=== PATIENT | female | born 1960 | race Caucasian/White ===

== ENCOUNTER 2021-03-26 15:16 | Inpatient (IN) | payer SELFPAY ==
[~2021-03-26 15:16] MED LIST: Iopamidol-370 76% 500 ML 1 ML ONE
[2021-03-26 16:28] LABS: #Basophils 0.1 thou/uL (0.0-0.2); #Eosinphils 0.5 thou/uL (0.0-0.7); #Lymphocytes 2.4 thou/uL (1.20-3.40); #Monocytes 0.7 thou/uL (0.11-0.59); #Neutrophils 10.8 thou/uL (1.40-6.50); %Basophils 0.4 % (0.0-1.0); %Eosinophils 3.5 % (0.0-10.0); %Lymphocytes 16.6 % (21.0-51.0); %Monocytes 4.7 % (0.0-10.0); %Neutrophils 74.8 % (42.0-75.0); Hemoglobin 13.8 g/dL (12.0-16.0); Mean Corpuscular HGB CONC 34.6 g/dL (32.0-36.0); Mean Corpuscular Hemoglobin 30.7 pg (27.0-31.0); Mean Corpuscular Volume 88.8 fL (78.0-98.0); Mean Platelet Volume 7.1 fL (7.4-10.4); Platelet Count 295 thou/uL (130-400); RBC Distribution Width 12.5 % (11.5-14.5); Red Blood Cell (RBC) Count 4.48 mill/uL (4.20-5.40); White Blood Cell (WBC) Count 14.4 thou/uL (4.8-10.8)
[2021-03-26 16:45] LABS: ALT (SGPT) 31 U/L (8-55); AST (SGOT) 58 U/L (5-34); Albumin 4.4 g/dL (3.5-5.0); Alkaline Phosphatase 60 U/L (40-110); Anion Gap 13 mmol/L (10-20); BUN (Urea Nitrogen) 13 mg/dL (9.8-20.1); Bilirubin, Total 0.5 mg/dL (0.2-1.2); Calc. Creatinine Clearance 0 mL/min (70-130); Calcium 9.2 mg/dL (7.8-10.44); Carbon Dioxide 22 mmol/L (22-29); Chloride 106 mmol/L (98-107); Glucose 96 mg/dL (70-105); Protein, Total 7.4 g/dL (6.0-8.3); Sodium 137 mmol/L (136-145)
[2021-03-26] MEDS ORDERED: Aspirin 325 MG TAB ONE (17:17)
[2021-03-26] MEDS ORDERED: Ondansetron PF 4 MG/2 ML Vial ONE ×2 (17:21→20:12)
[2021-03-26] MEDS ORDERED: Morphine 4 MG/ML VIAL ONE (17:21)
[2021-03-26] MEDS ORDERED: Dextrose 5% in Water 1,000 ML IV PRN ×2 (20:32→23:22)
[2021-03-26] MEDS ORDERED: Nitroglycerin 0.4 MG TAB (25 Tab Bottle) SL PRN ×2 (20:32→23:23)
[2021-03-26] MEDS ORDERED: Calcium Carbonate 500 MG ChewTAB PO PRN ×2 (20:32→23:23)
[2021-03-26] MEDS ORDERED: Ondansetron ODT 4 MG TAB PO PRN (20:32)
[2021-03-26] MEDS ORDERED: hydrALAZINE 20 MG/ML VIAL SLOW IVP PRN ×2 (20:32→23:23)
[2021-03-26] MEDS ORDERED: HumaLOG 300 UNITS/3 ML VIAL SC PRN ×4 (20:32→23:23)
[2021-03-26] MEDS ORDERED: Acetaminophen 325 MG TAB PO PRN ×2 (20:32→23:23)
[2021-03-26] MEDS ORDERED: Dextrose 50% Abboject 50 ML SYRINGE SLOW IVP PRN ×2 (20:32→23:22)
[2021-03-26 20:52] LABS: Troponin I Less than 0.010 ng/mL (< 0.028)
[2021-03-26] MEDS ORDERED: Morphine 4 MG/ML VIAL SLOW IVP PRN (20:56)
[2021-03-26] MEDS ORDERED: Lactated Ringer's 1,000 ML IV SCH (21:30)
[2021-03-26 22:42] VITALS: BMI 34.7
[2021-03-26] MEDS ORDERED: Rosuvastatin 20 MG TAB PO SCH ×2 (22:45→23:30)
[2021-03-26] MEDS ORDERED: Lisinopril 20 MG TAB PO SCH (22:45)
[2021-03-26] MEDS ORDERED: Zolpidem Tartrate 5 MG TAB PO SCH (23:30)
[2021-03-26] MEDS: Lactated Ringer's 1,000 ML IV SCH (23:43)
[2021-03-26] MEDS: Morphine 4 MG/ML VIAL SLOW IVP PRN (23:44)
[2021-03-27] MEDS ORDERED: Dextrose 5% in Water 1,000 ML IV PRN (00:08)
[2021-03-27] MEDS ORDERED: Dextrose 50% Abboject 50 ML SYRINGE SLOW IVP PRN (00:08)
[2021-03-27 01:44] LABS: Troponin I Less than 0.010 ng/mL (< 0.028)
[2021-03-27] MEDS: Lactated Ringer's 1,000 ML IV SCH ×4 (03:37→16:46)
[2021-03-27 05:06] LABS: Hemoglobin A1c 6.1 % (4.0-6.0)
[2021-03-27 05:10] LABS: #Lymphocytes 0.5 thou/uL (1.20-3.40); #Monocytes 0.6 thou/uL (0.11-0.59); #Neutrophils 15.5 thou/uL (1.40-6.50); %Basophils 0.2 % (0.0-1.0); %Eosinophils 0.2 % (0.0-10.0); %Lymphocytes 3.2 % (21.0-51.0); %Monocytes 3.6 % (0.0-10.0); %Neutrophils 92.9 % (42.0-75.0); Hemoglobin 12.3 g/dL (12.0-16.0); Mean Corpuscular HGB CONC 34.3 g/dL (32.0-36.0); Mean Corpuscular Hemoglobin 30.8 pg (27.0-31.0); Mean Platelet Volume 7.3 fL (7.4-10.4); Platelet Count 259 thou/uL (130-400); RBC Distribution Width 12.6 % (11.5-14.5); Red Blood Cell (RBC) Count 3.99 mill/uL (4.20-5.40); White Blood Cell (WBC) Count 16.7 thou/uL (4.8-10.8)
[2021-03-27 05:36] LABS: ALT (SGPT) 297 U/L (8-55); AST (SGOT) 415 U/L (5-34); Albumin 3.6 g/dL (3.5-5.0); Alkaline Phosphatase 70 U/L (40-110); Anion Gap 12 mmol/L (10-20); BUN (Urea Nitrogen) 11 mg/dL (9.8-20.1); Bilirubin, Total 2.2 mg/dL (0.2-1.2); Calc. Creatinine Clearance 120 mL/min (70-130); Calcium 8.3 mg/dL (7.8-10.44); Carbon Dioxide 22 mmol/L (22-29); Cardiac Risk 2.1 (Less than 4.5); Chloride 105 mmol/L (98-107); Cholesterol 73 mg/dl (< 200 Desired); Globulin 2.5 g/dL (2.4-3.5); Glucose 151 mg/dL (70-105); HDL Cholesterol 34 mg/dL (>60 Neg Risk); LDL Cholesterol, Calculated 27 mg/dL; Potassium 3.5 mmol/L (3.5-5.1); Protein, Total 6.1 g/dL (6.0-8.3); Sodium 135 mmol/L (136-145); Triglycerides 58 mg/dL (Less than 150)
[2021-03-27] MEDS: Aspirin Chewable 81 MG TAB PO SCH (07:28)
[2021-03-27] MEDS ORDERED: Aspirin Chewable 81 MG TAB PO SCH (09:00)
[2021-03-27] MEDS ORDERED: Lisinopril 20 MG TAB PO SCH ×2 (09:00)
[2021-03-27] MEDS ORDERED: Iopamidol-370 76% 500 ML 1 ML ONE (10:47)
[2021-03-27] MEDS: Morphine 4 MG/ML VIAL SLOW IVP PRN ×3 (12:37→20:46)
[2021-03-27] MEDS: Ondansetron ODT 4 MG TAB PO PRN ×2 (12:37→21:21)
[2021-03-27] MEDS ORDERED: Lactated Ringer's 1,000 ML IV SCH ×2 (15:47→16:14)
[2021-03-27] MEDS ORDERED: Piperacillin/Tazobactam 3.375 GM in Sodium Chloride 0.9% 100 ML IVPB SCH ×3 (16:00→18:00)
[2021-03-27 19:54] LABS: #Lymphocytes 0.4 thou/uL (1.20-3.40); #Monocytes 0.6 thou/uL (0.11-0.59); #Neutrophils 9.5 thou/uL (1.40-6.50); %Basophils 0.3 % (0.0-1.0); %Eosinophils 0.4 % (0.0-10.0); %Lymphocytes 3.8 % (21.0-51.0); %Monocytes 5.7 % (0.0-10.0); %Neutrophils 89.8 % (42.0-75.0); Hemoglobin 12.8 g/dL (12.0-16.0); Mean Corpuscular HGB CONC 33.7 g/dL (32.0-36.0); Mean Corpuscular Hemoglobin 30.7 pg (27.0-31.0); Mean Platelet Volume 7.2 fL (7.4-10.4); Platelet Count 208 thou/uL (130-400); RBC Distribution Width 12.8 % (11.5-14.5); Red Blood Cell (RBC) Count 4.17 mill/uL (4.20-5.40); White Blood Cell (WBC) Count 10.5 thou/uL (4.8-10.8)
[2021-03-27 20:14] LABS: ALT (SGPT) 270 U/L (8-55); AST (SGOT) 244 U/L (5-34); Albumin 3.8 g/dL (3.5-5.0); Alkaline Phosphatase 95 U/L (40-110); Anion Gap 8 mmol/L (10-20); BUN (Urea Nitrogen) 7 mg/dL (9.8-20.1); Bilirubin, Total 3.5 mg/dL (0.2-1.2); Calc. Creatinine Clearance 111 mL/min (70-130); Calcium 8.9 mg/dL (7.8-10.44); Carbon Dioxide 28 mmol/L (22-29); Chloride 104 mmol/L (98-107); Globulin 2.7 g/dL (2.4-3.5); Glucose 115 mg/dL (70-105); Potassium 4.2 mmol/L (3.5-5.1); Protein, Total 6.5 g/dL (6.0-8.3); Sodium 136 mmol/L (136-145)
[2021-03-27] MEDS: Piperacillin/Tazobactam 3.375 GM in Sodium Chloride 0.9% 100 ML IVPB SCH (20:44)
[2021-03-27] MEDS: Rosuvastatin 20 MG TAB PO SCH (20:45)
[2021-03-27] MEDS ORDERED: Rosuvastatin 20 MG TAB PO SCH (21:00)
[2021-03-27] MEDS: Sodium Chloride 0.9% 1,000 ML IV SCH (21:31)
[2021-03-27] MEDS ORDERED: Metoclopramide HCl 10 MG/2 ML VIAL IVP PRN (22:37)
[2021-03-28] MEDS: Piperacillin/Tazobactam 3.375 GM in Sodium Chloride 0.9% 100 ML IVPB SCH ×3 (05:41→18:40)
[2021-03-28] MEDS: Sodium Chloride 0.9% 1,000 ML IV SCH ×2 (06:36→09:30)
[2021-03-28 09:14] LABS: INR-International Normal Ratio 1.4; PTT 35.8 sec (22.9-36.1); Prothrombin Time 17.5 sec (12.0-14.7)
[2021-03-28 09:21] LABS: ALT (SGPT) 211 U/L (8-55); AST (SGOT) 146 U/L (5-34); Albumin 3.5 g/dL (3.5-5.0); Alkaline Phosphatase 114 U/L (40-110); Anion Gap 13 mmol/L (10-20); BUN (Urea Nitrogen) 7 mg/dL (9.8-20.1); Bilirubin, Direct 2.8 mg/dL (0.1-0.3); Bilirubin, Total 3.5 mg/dL (0.2-1.2); Calc. Creatinine Clearance 120 mL/min (70-130); Calcium 8.7 mg/dL (7.8-10.44); Carbon Dioxide 23 mmol/L (22-29); Chloride 102 mmol/L (98-107); Glucose 115 mg/dL (70-105); Lipase 23 U/L (8-78); Magnesium 1.6 mg/dL (1.6-2.6); Phosphorus 2.8 mg/dL (2.3-4.7); Potassium 3.5 mmol/L (3.5-5.1); Protein, Total 6.2 g/dL (6.0-8.3); Sodium 134 mmol/L (136-145)
[2021-03-28] MEDS ORDERED: Morphine 4 MG/ML VIAL SLOW IVP PRN (10:01)
[2021-03-28] MEDS ORDERED: Sodium Chloride 0.9% 1,000 ML IV SCH (10:02)
[2021-03-28] MEDS: Aspirin Chewable 81 MG TAB PO SCH (10:59)
[2021-03-28] MEDS ORDERED: Midazolam HCl 2 mg/2 ml Vial ONE ×2 (11:28→12:08)
[2021-03-28] MEDS ORDERED: Fentanyl 100 MCG/2 ML VIAL ONE ×3 (11:28→14:56)
[2021-03-28] MEDS ORDERED: Lidocaine 1% w/Epinephrine 1:100K 20 ML VIAL ONE (11:36)
[2021-03-28] MEDS ORDERED: Iothalamate Meglumine 60% 50 ML VIAL FS ONE (11:36)
[2021-03-28] MEDS ORDERED: Bupivacaine 0.25% HCL 30 ML VIAL ONE (11:36)
[2021-03-28] MEDS ORDERED: Piperacillin/Tazobactam 3.375 GM VIAL ONE (11:59)
[2021-03-28] MEDS ORDERED: Sodium Chloride 0.9% 100 ML ONE (11:59)
[2021-03-28] MEDS ORDERED: Ondansetron PF 4 MG/2 ML Vial ONE (12:06)
[2021-03-28] MEDS ORDERED: PROPOFOL 200 MG/20 ML VIAL ONE (12:06)
[2021-03-28] MEDS ORDERED: Glycopyrrolate 0.2 MG/ML 5 ML SYRINGE ONE (12:06)
[2021-03-28] MEDS ORDERED: Rocuronium Bromide 10 MG/ML (10ML VIAL) ONE (12:06)
[2021-03-28] MEDS ORDERED: Lidocaine 1% PF 5 ML VIAL ONE (12:06)
[2021-03-28] MEDS ORDERED: traMADol HCl 50 MG TAB PO PRN (14:37)
[2021-03-28] MEDS ORDERED: Ondansetron HCl/PF 4 MG/2 ML Vial IVP PRN (14:39)
[2021-03-28] MEDS ORDERED: Promethazine HCl 25 MG/ML VIAL IVPB PRN (14:39)
[2021-03-28] MEDS ORDERED: Promethazine HCl 25 MG/ML VIAL IM PRN (14:39)
[2021-03-28] MEDS ORDERED: traMADol HCl 50 MG TAB PO SCH (14:45)
[2021-03-28] MEDS ORDERED: Acetaminophen 325 MG TAB PO SCH (14:45)
[2021-03-28] MEDS ORDERED: HYDROmorphone 0.5 MG/0.5 ML SYRINGE ONE ×2 (15:20→15:28)
[2021-03-28] MEDS: Potassium Chloride 20 MEQ in Lactated Ringer's 1,000 ML IV SCH ×2 (16:54→23:54)
[2021-03-28] MEDS: traMADol HCl 50 MG TAB PO SCH ×2 (16:55→22:38)
[2021-03-28] MEDS ORDERED: Ketorolac Tromethamine 30 MG/ML VIAL IVP SCH (18:00)
[2021-03-28] MEDS: Ketorolac Tromethamine 30 MG/ML VIAL IVP SCH (20:10)
[2021-03-28] MEDS: Ondansetron ODT 4 MG TAB PO PRN (20:16)
[2021-03-28] MEDS: Rosuvastatin 20 MG TAB PO SCH (20:16)
[2021-03-28] MEDS: Melatonin 3 MG TAB PO PRN (22:57)
[2021-03-29] MEDS ORDERED: HYDROcodone/Acetaminophen 5/325 mg Tablet PO PRN (00:39)
[2021-03-29] MEDS: HYDROcodone/Acetaminophen 5/325 mg Tablet PO PRN ×3 (01:11→17:17)
[2021-03-29] MEDS: Piperacillin/Tazobactam 3.375 GM in Sodium Chloride 0.9% 100 ML IVPB SCH ×3 (01:14→17:19)
[2021-03-29] MEDS: Ketorolac Tromethamine 30 MG/ML VIAL IVP SCH ×4 (02:29→20:38)
[2021-03-29 07:18] LABS: ALT (SGPT) 157 U/L (8-55); AST (SGOT) 90 U/L (5-34); Albumin 3.3 g/dL (3.5-5.0); Alkaline Phosphatase 145 U/L (40-110); Anion Gap 14 mmol/L (10-20); BUN (Urea Nitrogen) 11 mg/dL (9.8-20.1); Bilirubin, Direct 2.2 mg/dL (0.1-0.3); Bilirubin, Total 2.8 mg/dL (0.2-1.2); Calc. Creatinine Clearance 133 mL/min (70-130); Carbon Dioxide 22 mmol/L (22-29); Chloride 104 mmol/L (98-107); Glucose 114 mg/dL (70-105); Lipase 7 U/L (8-78); Magnesium 1.8 mg/dL (1.6-2.6); Phosphorus 2.2 mg/dL (2.3-4.7); Potassium 3.8 mmol/L (3.5-5.1); Protein, Total 5.8 g/dL (6.0-8.3); Sodium 136 mmol/L (136-145)
[2021-03-29] MEDS: Ondansetron ODT 4 MG TAB PO PRN (10:01)
[2021-03-29] MEDS ORDERED: SUMAtriptan Succinate 25 MG TAB PO STA (10:30)
[2021-03-29] MEDS ORDERED: Zolpidem Tartrate 5 MG TAB PO PRN (10:34)
[2021-03-29] MEDS ORDERED: SUMAtriptan Succinate 50 MG TAB PO SCH (10:45)
[2021-03-29 11:12] LABS: Band 30 % (5-11); Eosinophils 1 % (0-10); Hemoglobin 11.4 g/dL (12.0-16.0); Lymphocytes 10 % (21-51); MDiff Complete? YES; Mean Corpuscular HGB CONC 32.8 g/dL (32.0-36.0); Mean Corpuscular Volume 91.4 fL (78.0-98.0); Mean Platelet Volume 7.9 fL (7.4-10.4); Monocytes 7 % (0-10); Neutrophil 52 % (42-75); Platelet Count 178 thou/uL (130-400); Platelet Morphology Comment Appears Adequate; Polychromasia SLIGHT = 2-3 cells (100X) (0-2/hpf); RBC Distribution Width 12.8 % (11.5-14.5); White Blood Cell (WBC) Count 6.8 thou/uL (4.8-10.8)
[2021-03-29] MEDS ORDERED: diphenhydrAMINE 25 MG CAP PO SCH (13:16)
[2021-03-29] MEDS: Potassium Chloride 20 MEQ in Lactated Ringer's 1,000 ML IV SCH ×2 (14:06→14:18)
[2021-03-29] MEDS: Rosuvastatin 20 MG TAB PO SCH (20:39)
[2021-03-29] MEDS: Melatonin 3 MG TAB PO PRN (20:39)
[2021-03-30] MEDS: HYDROcodone/Acetaminophen 5/325 mg Tablet PO PRN ×2 (00:07→20:10)
[2021-03-30] MEDS: Potassium Chloride 20 MEQ in Lactated Ringer's 1,000 ML IV SCH ×3 (00:41→15:39)
[2021-03-30] MEDS: Ketorolac Tromethamine 30 MG/ML VIAL IVP SCH ×4 (01:43→20:04)
[2021-03-30] MEDS: Piperacillin/Tazobactam 3.375 GM in Sodium Chloride 0.9% 100 ML IVPB SCH ×2 (01:43→12:16)
[2021-03-30] MEDS ORDERED: Iopamidol-370 76% 500 ML 1 ML ONE (09:49)
[2021-03-30 10:13] LABS: Magnesium 1.7 mg/dL (1.6-2.6); Phosphorus 1.7 mg/dL (2.3-4.7)
[2021-03-30] MEDS ORDERED: PHOS-NAK 1 PKT PACK PO SCH (10:21)
[2021-03-30 12:03] LABS: ALT (SGPT) 111 U/L (8-55); AST (SGOT) 55 U/L (5-34); Albumin 3.1 g/dL (3.5-5.0); Alkaline Phosphatase 202 U/L (40-110); Bilirubin, Direct 1.6 mg/dL (0.1-0.3); Bilirubin, Total 2.1 mg/dL (0.2-1.2); Protein, Total 5.7 g/dL (6.0-8.3)
[2021-03-30 13:07] LABS: #Eosinphils 0.2 thou/uL (0.0-0.7); #Lymphocytes 1.1 thou/uL (1.20-3.40); #Monocytes 0.8 thou/uL (0.11-0.59); #Neutrophils 5.3 thou/uL (1.40-6.50); %Basophils 0.4 % (0.0-1.0); %Eosinophils 2.5 % (0.0-10.0); %Lymphocytes 15.1 % (21.0-51.0); %Monocytes 10.8 % (0.0-10.0); %Neutrophils 71.2 % (42.0-75.0); Hemoglobin 11.6 g/dL (12.0-16.0); Mean Corpuscular HGB CONC 33.6 g/dL (32.0-36.0); Mean Corpuscular Hemoglobin 30.3 pg (27.0-31.0); Mean Corpuscular Volume 90.2 fL (78.0-98.0); Mean Platelet Volume 7.8 fL (7.4-10.4); Platelet Count 217 thou/uL (130-400); RBC Distribution Width 12.7 % (11.5-14.5); Red Blood Cell (RBC) Count 3.82 mill/uL (4.20-5.40); White Blood Cell (WBC) Count 7.4 thou/uL (4.8-10.8)
[2021-03-30] MEDS: Enoxaparin Sodium 40 MG/0.4 ML SYRINGE SC SCH (14:21)
[2021-03-30] MEDS ORDERED: SUMAtriptan Succinate 25 MG TAB PO SCH (14:45)
[2021-03-30] MEDS ORDERED: cefTRIAXone\\ROCEPHIN 2 GM in Sodium Chloride 0.9% 100 ML IVPB SCH (18:00)
[2021-03-30] MEDS: Rosuvastatin 20 MG TAB PO SCH (20:09)
[2021-03-30] MEDS: Zolpidem Tartrate 5 MG TAB PO PRN (20:10)
[2021-03-30 23:29] LABS: SARS-CoV-2 NAA Rapid Test Not Detected (NotDetected)
[2021-03-31] MEDS: Potassium Chloride 20 MEQ in Lactated Ringer's 1,000 ML IV SCH ×2 (00:30→17:32)
[2021-03-31] MEDS: Ketorolac Tromethamine 30 MG/ML VIAL IVP SCH ×4 (03:53→20:43)
[2021-03-31] MEDS: HYDROcodone/Acetaminophen 5/325 mg Tablet PO PRN (05:52)
[2021-03-31 06:20] LABS: Anion Gap 12 mmol/L (10-20); BUN (Urea Nitrogen) 8 mg/dL (9.8-20.1); Calc. Creatinine Clearance 155 mL/min (70-130); Carbon Dioxide 25 mmol/L (22-29); Chloride 103 mmol/L (98-107); Potassium 3.5 mmol/L (3.5-5.1); Sodium 136 mmol/L (136-145)
[2021-03-31 06:21] LABS: ALT (SGPT) 81 U/L (8-55); AST (SGOT) 34 U/L (5-34); Albumin 3.1 g/dL (3.5-5.0); Alkaline Phosphatase 182 U/L (40-110); Bilirubin, Total 1.2 mg/dL (0.2-1.2); Calcium 8.3 mg/dL (7.8-10.44); Globulin 2.8 g/dL (2.4-3.5); Glucose 96 mg/dL (70-105); Protein, Total 5.9 g/dL (6.0-8.3)
[2021-03-31] MEDS ORDERED: SUMAtriptan Succinate 50 MG TAB PO PRN (09:00)
[2021-03-31] MEDS ORDERED: Furosemide 20 MG/2 ML VIAL SLOW IVP SCH (10:00)
[2021-03-31] MEDS: Enoxaparin Sodium 40 MG/0.4 ML SYRINGE SC SCH (11:44)
[2021-03-31] MEDS: Zolpidem Tartrate 5 MG TAB PO PRN (20:43)
[2021-03-31] MEDS: Rosuvastatin 20 MG TAB PO SCH (20:43)
[2021-04-01] MEDS: Ketorolac Tromethamine 30 MG/ML VIAL IVP SCH (01:37)
[2021-04-01] MEDS: HYDROcodone/Acetaminophen 5/325 mg Tablet PO PRN (05:49)
[2021-04-01 06:17] LABS: #Basophils 0.1 thou/uL (0.0-0.2); #Eosinphils 0.4 thou/uL (0.0-0.7); #Lymphocytes 1.8 thou/uL (1.20-3.40); #Monocytes 0.8 thou/uL (0.11-0.59); #Neutrophils 4.6 thou/uL (1.40-6.50); %Basophils 0.7 % (0.0-1.0); %Lymphocytes 23.5 % (21.0-51.0); %Monocytes 10.6 % (0.0-10.0); %Neutrophils 60.2 % (42.0-75.0); Hemoglobin 11.9 g/dL (12.0-16.0); Mean Corpuscular HGB CONC 33.7 g/dL (32.0-36.0); Mean Corpuscular Hemoglobin 30.3 pg (27.0-31.0); Mean Corpuscular Volume 89.9 fL (78.0-98.0); Mean Platelet Volume 7.5 fL (7.4-10.4); Platelet Count 237 thou/uL (130-400); Red Blood Cell (RBC) Count 3.94 mill/uL (4.20-5.40); White Blood Cell (WBC) Count 7.6 thou/uL (4.8-10.8)
[2021-04-01 06:36] LABS: Anion Gap 11 mmol/L (10-20); BUN (Urea Nitrogen) 8 mg/dL (9.8-20.1); Calc. Creatinine Clearance 142 mL/min (70-130); Calcium 8.7 mg/dL (7.8-10.44); Carbon Dioxide 27 mmol/L (22-29); Chloride 103 mmol/L (98-107); Glucose 102 mg/dL (70-105); Potassium 3.4 mmol/L (3.5-5.1); Sodium 138 mmol/L (136-145)
[2021-04-01] MEDS ORDERED: Ketorolac Tromethamine 30 MG/ML VIAL IVP PRN (08:00)
[2021-04-01] MEDS: Enoxaparin Sodium 40 MG/0.4 ML SYRINGE SC SCH (08:58)
[2021-04-01] MEDS ORDERED: Furosemide 20 MG/2 ML VIAL SLOW IVP SCH (09:00)
[2021-04-01 15:41] VITALS: BP 164/89; TEMP 97.9
== END 2021-04-01 15:36 | disposition home or self-care (01) | DRG 417 ==
LOC: ERS 15:16 → OBSVTOIN 19:00 → 2SW 19:00 → ERS 21:44 → ONC 03-27 18:49 → T4-A 03-28 05:47
PROVIDERS: ADMIT Family Medicine; ATTEND Family Medicine
PROC: 0FT44ZZ Resection of Gallbladder, Percutaneous Endoscopic Approach (ICD-10-PCS; principal; 2021-03-29)
DX: K85.10 Biliary acute pancreatitis without necrosis or infection (principal); A41.51 Sepsis due to Escherichia coli [E. coli]; K80.00 Calculus of gallbladder with acute cholecystitis without obstruction; J90 Pleural effusion, not elsewhere classified; E11.9 Type 2 diabetes mellitus without complications; I10 Essential (primary) hypertension; E78.00 Pure hypercholesterolemia, unspecified; F41.9 Anxiety disorder, unspecified; E78.5 Hyperlipidemia, unspecified; G47.00 Insomnia, unspecified; E66.01 Morbid (severe) obesity due to excess calories; G43.909 Migraine, unspecified, not intractable, without status migrainosus; R09.02 Hypoxemia; Z20.822 Contact with and (suspected) exposure to COVID-19; E04.1 Nontoxic single thyroid nodule; Z90.710 Acquired absence of both cervix and uterus; Z98.84 Bariatric surgery status; Z68.34 Body mass index [BMI] 34.0-34.9, adult
CPT/HCPCS: 36415; 36416; 71045; 71275; 74177; 74181; 76000; 76705; 80048; 80053; 80061; 80076; 80307; 83036; 83690; 83735; 84100; 84439; 84443; 84484; 85025; 85379; 85610; 85730; 86850; 86900; 86901; 87040; 87077; 87149; 87186; 88304; 93005; 93010; J0696; J1170; J1650; J1885; J1940; J2250; J2270; J2405; J2543; J2704; J2765; J3010; J3480; J3490; J7120; Q0162; Q0163; Q9961; Q9967; S0020; U0002; U0005